=== PATIENT | female | born 1980 | race Caucasian/White ===

== ENCOUNTER 2021-05-11 11:08 | Emergency (ER) | payer SELFPAY ==
[~2021-05-11] VITALS: Ht 170.2 cm; Wt 62.0 kg
[2021-05-11 12:00] LABS: ALBUMIN 3.1 g/dL (3.2-5.0); ALKALINE PHOSPHATASE 191 u/l (38-126); ANION GAP 12 (6-22 (CALC)); BILIRUBIN, TOTAL 0.6 mg/dL (0.0-1.4); BUN 24 mg/dL (7-17); BUN/CREATININE RATIO 21 (12-20 (CALC)); CARBON DIOXIDE 20 mmol/l (22-30); CHLORIDE 105 mmol/l (95-108); CREATININE 1.1 mg/dL (0.5-1.0); GFR 56 ML/MIN (>=60 (CALC)); GFR FOR AFR.AMER. > 60 ML/MIN (>=60 (CALC)); LIPASE 75 u/l (23-300); POTASSIUM 3.1 mmol/l (3.5-5.1); SGOT/AST 27 u/l (14-36); SODIUM 133 mmol/l (137-146)
[2021-05-11 12:01] LABS: HEMOGLOBIN 8.5 g/dl (12.0-16.0); IMMATURE GRANULOCYTES 0.3 % (0.0-5.0); MEAN CELL VOLUME 92.2 fL CALC (80.0-100.0); MEAN CORPUSCULAR HGB CONC 31.5 g/dL CAL (32.0-36.0); NEUT# 5.83 thou/uL (2.00-7.15); RED BLOOD COUNT 2.93 mill/uL (4.20-5.60); RED CELL DISTRI WIDTH 15.6 % (11.5-15.5)
[2021-05-11] MEDS ORDERED: VENTOLIN HFA IN (15:07)
[2021-05-11] MEDS ORDERED: BUPRENORPHIN2 MG SL (15:09)
[2021-05-11] MEDS ORDERED: FIORICET PO (15:10)
[2021-05-11] MEDS ORDERED: CLONAZEPAM1 MG PO (15:10)
[2021-05-11] MEDS ORDERED: CETIRIZINE10 MG PO (15:10)
[2021-05-11] MEDS ORDERED: FOLIC ACID1 MG PO (15:11)
[2021-05-11] MEDS ORDERED: LEVOTHYROXIN50 MC1 PO (15:12)
[2021-05-11] MEDS ORDERED: SERTRALINE50 MG PO (15:12)
[2021-05-11] MEDS ORDERED: NORA-BE0.35 MG PO (15:12)
[2021-05-11] MEDS ORDERED: TAMSULOSIN HCL0.4 MG PO (15:13)
[2021-05-11 17:24] LABS: ACT PARTIAL THROMBO TIME 29.3 SECONDS (20.0-32.5); INTERNATIONAL NORMALIZED RATIO 1.1 RATIO (0.7-1.3)
[2021-05-11 20:15] VITALS: BP 122/79
== END 2021-05-11 20:40 | disposition short-term general hospital (02) | DRG 776 ==
LOC: ED 11:08
PROVIDERS: Family Medicine
PROC: 02HV33Z Insertion of Infusion Device into Superior Vena Cava, Percutaneous Approach (ICD-10-PCS; principal; 2021-05-11)
DX: O85 Puerperal sepsis (principal); R65.21 Severe sepsis with septic shock; I21.4 Non-ST elevation (NSTEMI) myocardial infarction; I38 Endocarditis, valve unspecified; E87.6 Hypokalemia; Z20.822 Contact with and (suspected) exposure to COVID-19
CPT/HCPCS: J0692; J1644; Q9967